=== PATIENT | male | born 1975 | race Two or more races ===

== ENCOUNTER 2021-08-20 12:47 | Outpatient (REF) | payer MEDICAID, SELFPAY ==
--- NOTE | 2021-08-20 12:52 | EEG_ITS ---
This is a 16-channel EEG with an EKG lead. The patient is reported awake during the tracing. Background EEG rhythm is 10 to 12 hertz, 5 to 30 microvolt posteriorly and lower amplitude fast anteriorly. Photic stimulation does not produce any significant driving. Hyperventilation is not performed. Cardiac lead does not reveal any significant abnormality. No sharp wave spikes or paroxysmal tendency noted. IMPRESSION: Unremarkable EEG. MD LINO Franco/JIAN / [id number]
== END 2021-08-20 12:48 | disposition home or self-care (01) ==
LOC: HO.NEURO 12:47
PROVIDERS: PCP Pediatrics; Visit Provider Pediatrics
DX: R55 Syncope and collapse (principal)
CPT/HCPCS: 95816

== ENCOUNTER → 2022-06-10 11:44 | Day surgery (SDC) | payer MEDICAID, SELFPAY ==
--- NOTE | 2022-06-09 10:48 | HO.ANESPROP2 ---
HPI - Anesthesia Eval Consult details Narrative: 47yo M for Upper Endoscopy [facility] Past Medical History Medical History (Updated 06/09/22 @ 08:49 by Sara Taylor) Asthma Depression Hiatal hernia Iron deficiency anemia Low vitamin D level Opiate dependence Surgical History Surgical History (Updated 06/09/22 @ 08:49 by Sara Taylor) History of colonoscopy History of endoscopy Meds Allergies Allergy/AdvReac Type Severity Reaction Status Date / Time No Known Allergies Allergy Verified 06/09/22 08:47 Home Medications Medication Instructions Recorded Confirmed Last Taken Type albuterol sulfate 90 mcg/actuation 2 puff inhalation Q4H 06/09/22 06/09/22 Unknown History aerosol inhaler (ProAir HFA) buprenorphine 8 mg-naloxone 2 mg 2 strip sublingual DAILY 06/09/22 06/09/22 Unknown History sublingual film (Suboxone) hydroxyzine HCl 10 mg tablet 1 tab PO BID PRN ANXIETY 06/09/22 06/09/22 Unknown History melatonin 5 mg tablet 2 tab PO BEDTIME PRN Sleep 06/09/22 06/09/22 Unknown History olanzapine 7.5 mg tablet 1 tab PO BEDTIME 06/09/22 06/09/22 Unknown History omeprazole 40 mg capsule,delayed 1 cap PO BID 06/09/22 06/09/22 Unknown History release ondansetron HCl 4 mg tablet 1 tab PO Q8H 06/09/22 06/09/22 Unknown History prazosin 2 mg capsule 1 cap BEDTIME 06/09/22 06/09/22 Unknown History sertraline 100 mg tablet 1 tab DAILY 06/09/22 06/09/22 Unknown History sertraline 50 mg tablet 1 tab PO DAILY 06/09/22 06/09/22 Unknown History Exam Exam Date and Time: June 09, 2022 1048 Assessment and Plan Assessment Anesthesia Assessment: Chart Reviewed
[2022-06-10 12:08] VITALS: BMI 19.5
[2022-06-10 12:17] VITALS: BP 118/84; PULSE 88; RESP 16; TEMP 37.1; O2SAT 97
[2022-06-10 12:27] LABS: Amphetamine Screen Urine Not Detected (Not Detect); Barbiturates, Urine Not Detected (Not Detect); Benzodiazepines Screen Urine Not Detected (Not Detect); Cannabinoid Screen Urine Not Detected (Not Detect); Cocaine Screen Urine Not Detected (Not Detect); Fentanyl, urine POSITIVE (Not Detect); Opiate Screen Urine Not Detected (Not Detect); Phencyclidine Screen Urine Not Detected (Not Detect)
--- NOTE | 2022-06-10 12:57 | PC.NURSE ---
Urine toxicity results positive for Fentanyl. Dr. Darnell and Dr. Anderson made aware and both at bedside. Case cancelled.
== END ==
PROVIDERS: Nurse Practitioner; PCP Pediatrics; Visit Provider Internal Medicine Gastroenterology
DX: R10.13 Epigastric pain (principal); Z53.09 Procedure and treatment not carried out because of other contraindication; R79.9 Abnormal finding of blood chemistry, unspecified; R82.5 Elevated urine levels of drugs, medicaments and biological substances
CPT/HCPCS: 80307

== ENCOUNTER 2022-07-16 10:29 | Outpatient (REF) | payer MEDICAID, SELFPAY | END 2022-07-16 10:30 | disposition home or self-care (01) | LOC: HO.LAB 10:29 | PROVIDERS: PCP Pediatrics; Visit Provider Internal Medicine Gastroenterology | DX: Z13.89 Encounter for screening for other disorder (principal) | CPT/HCPCS: 80307 ==

== ENCOUNTER 2022-07-17 09:48 | Day surgery (SDC) | payer MEDICAID, SELFPAY ==
--- NOTE | 2022-07-16 09:10 | P.CONAN_ITS ---
Documented by User: Lilian Matamoros NP 07/16/22 09:12 HPI - Anesthesia Eval Consult details Narrative: 47yo M for Upper Endoscopy Suboxone daily for hx opiate Cx'd 05/2022 for +Fentanyl PMFSH Past Medical History Medical History (Updated 06/09/22 @ 08:49 by Sara Taylor) Asthma Depression Hiatal hernia Iron deficiency anemia Low vitamin D level Opiate dependence Surgical History Surgical History (Updated 06/09/22 @ 08:49 by Sara Taylor) History of colonoscopy History of endoscopy Social History Social History Patient Tobacco Use Status: Current everyday Tobacco user Tobacco use type: Cigarette Cigarettes Per Day: 6 Years Smoked: 6 Smoked in Last 30 Days: Yes Use of substances other than those prescribed or required for medical reasons: No Are you DNR?: No Advance Directives: No Advance Directives Information Provided: Yes Meds Allergies Allergy/AdvReac Type Severity Reaction Status Date / Time No Known Allergies Allergy Verified 06/10/22 12:06 Home Medications Medication Instructions Recorded Confirmed Last Taken Type albuterol sulfate 90 mcg/actuation 2 puff inhalation Q4H 06/09/22 06/10/22 06/09/22 History aerosol inhaler (ProAir HFA) buprenorphine 8 mg-naloxone 2 mg 2 strip sublingual DAILY 06/09/22 06/10/22 07/14/22 History sublingual film (Suboxone) hydroxyzine HCl 10 mg tablet 1 tab PO BID PRN ANXIETY 06/09/22 06/10/22 06/09/22 History melatonin 5 mg tablet 2 tab PO BEDTIME PRN Sleep 06/09/22 06/10/22 Unknown History olanzapine 7.5 mg tablet 1 tab PO BEDTIME 06/09/22 06/10/22 Unknown History omeprazole 40 mg capsule,delayed 1 cap PO BID 06/09/22 06/10/22 Unknown History release ondansetron HCl 4 mg tablet 1 tab PO Q8H 06/09/22 06/10/22 Unknown History prazosin 2 mg capsule 1 cap BEDTIME 06/09/22 06/10/22 Unknown History sertraline 100 mg tablet 1 tab DAILY 06/09/22 06/10/22 Unknown History sertraline 50 mg tablet 1 tab PO DAILY 06/09/22 06/10/22 Unknown History Exam Exam Date and Time: July 16, 2022 0910 Assessment and Plan Assessment Anesthesia Assessment: Chart Reviewed Documented by User: Elise Calderón MD 07/17/22 12:48 [facility] Past Medical History Medical History (Updated 06/09/22 @ 08:49 by Sara Taylor) Asthma Depression Hiatal hernia Iron deficiency anemia Low vitamin D level Opiate dependence Family History Family history of problems with anesthesia: No Surgical History Surgical History (Updated 06/09/22 @ 08:49 by Sara Taylor) History of colonoscopy History of endoscopy History of Problems with Anesthesia: No Social History Social History Patient Tobacco Use Status: Current everyday Tobacco user Tobacco use type: Cigarette Cigarettes Per Day: 6 Years Smoked: 6 Smoked in Last 30 Days: Yes Use of substances other than those prescribed or required for medical reasons: No Are you DNR?: No Advance Directives: No Advance Directives Information Provided: Yes Meds Allergies Allergy/AdvReac Type Severity Reaction Status Date / Time No Known Allergies Allergy Verified 06/10/22 12:06 Home Medications Medication Instructions Recorded Confirmed Last Taken Type albuterol sulfate 90 mcg/actuation 2 puff inhalation Q4H 06/09/22 06/10/22 06/09/22 History aerosol inhaler (ProAir HFA) buprenorphine 8 mg-naloxone 2 mg 2 strip sublingual DAILY 06/09/22 06/10/22 07/14/22 History sublingual film (Suboxone) hydroxyzine HCl 10 mg tablet 1 tab PO BID PRN ANXIETY 06/09/22 06/10/22 06/09/22 History melatonin 5 mg tablet 2 tab PO BEDTIME PRN Sleep 06/09/22 06/10/22 Unknown History olanzapine 7.5 mg tablet 1 tab PO BEDTIME 06/09/22 06/10/22 Unknown History omeprazole 40 mg capsule,delayed 1 cap PO BID 06/09/22 06/10/22 Unknown History release ondansetron HCl 4 mg tablet 1 tab PO Q8H 06/09/22 06/10/22 Unknown History prazosin 2 mg capsule 1 cap BEDTIME 06/09/22 06/10/22 Unknown History sertraline 100 mg tablet 1 tab DAILY 06/09/22 06/10/22 Unknown History sertraline 50 mg tablet 1 tab PO DAILY 06/09/22 06/10/22 Unknown History Exam Airway Mallampati Class: I TM Dist: >3cm Neck ROM: Full Heart: rr Lungs: cta Assessment and Plan Assessment Anesthesia Assessment: Anesthesia Plan Discussed Final Anesthetic Review Family History of Problems with Anesthesia: No History of Problems with Anesthesia: No NPO: Yes ASA Class: II Final Preanesthetic Review: No Changes in Pt Med Stat, Meds/Allgs Chart Reviewed, Consent Obtained/Reviewed and Anes Risks/Benef Reviewed Patient Risk: Low Procedure Risk: Low Anesthetic Plan Anesthetic Plan: MAC: Disposition: Standard PACU
[2022-07-17 10:49] VITALS: BP 130/94; PULSE 87; RESP 16; TEMP 37; O2SAT 97; BMI 21.4
[2022-07-17 11:02] LABS: Amphetamine Screen Urine Not Detected (Not Detect); Barbiturates, Urine Not Detected (Not Detect); Benzodiazepines Screen Urine Not Detected (Not Detect); Cannabinoid Screen Urine Not Detected (Not Detect); Cocaine Screen Urine Not Detected (Not Detect); Fentanyl, urine Not Detected (Not Detect); Opiate Screen Urine Not Detected (Not Detect); Phencyclidine Screen Urine Not Detected (Not Detect)
[2022-07-17] MEDS: Lactated Ringers 1,000 ML 100 ML IVCONT (11:10)
--- NOTE | 2022-07-17 12:28 | MHC.SHP ---
Pre-Procedural Eval Section A Date of Service: 07/17/22 Section B Chief Complaint: Epigastric pain Details of Present Illness: see H*P no changes Relevant Family History (Specify if Yes): No Relevant Social History: None Present Medications: see Short Stay Collaborative assessment Medical History: No relevant PMH History of Previous Operations: Relevant previous surgery/procedure and date(s) (PUD [facility] 10 yrs ago) Allergies: Allergies Allergy/AdvReac Type Severity Reaction Status Date / Time No Known Allergies Allergy Verified 06/10/22 12:06 Review of Systems Sugical H&P ROS: Negative: Constitution, Cardiovascular, Respiratory, Neurological, Psychiatric, Hem-Onc, Allergic/Immunologic, Gastrointestinal, Genitourinary, Musculoskeletal, Integumentary, Endocrine and Eyes/Ears/Nose/Throat Exam Surgical H&P Exam: Normal: HEENT, Normal: Heart, Normal: Lungs, Normal: Extremities, Normal: Abdomen, Normal: Skin and Normal: Neurological Plan Diagnosis/Plan: Unchanged I have reviewed the history and physical and performed a pertinent physical examination on my patient. No changes have occurred unless specified. Time Spent With Patient Time: Total time managing care of this patient today ____ minutes.
[2022-07-17 13:00] VITALS: BP 92/54; PULSE 73; RESP 16; TEMP 36.1; O2SAT 96
[2022-07-17 13:15] VITALS: BP 92/54; PULSE 73; RESP 16; O2SAT 98
[2022-07-17 13:30] VITALS: BP 116/74; PULSE 67; RESP 16; TEMP 36.1; O2SAT 98
--- NOTE | 2022-07-17 14:58 | PM.OP ---
Brief Operative Note Date of Service: 07/17/22 Pre-op diagnosis: abdominal pain Post-op diagnosis: same (gastric ulcer) Procedure: EGD Surgeon: Hoang Darnell Anesthesia: MAC Was an Fiberglass Autobody Repairer used for this Procedure?: No Estimated blood loss (mL): 5 Pathology: other Condition: stable Disposition: PACU
--- NOTE | 2022-07-17 23:23 | OP_ITS ---
DATE OF SERVICE: 07/17/2022 SURGEON: Hoang Darnell MD INDICATIONS: Epigastric pain. PREOPERATIVE DIAGNOSIS: POSTOPERATIVE DIAGNOSIS: PROCEDURE PERFORMED: Upper endoscopy with biopsy. ESTIMATED BLOOD LOSS: COMPLICATIONS: ANESTHESIA: Monitored anesthesia care. ASSISTANTS: SPECIMENS: DESCRIPTION OF PROCEDURE: History and physical was performed. The risks and benefits of the procedure were explained to the patient. Informed consent was obtained. The patient was placed in the left lateral decubitus position. The Olympus video gastroscope was introduced into the esophagus, stomach, and duodenum. Examination was performed. The scope was removed. He tolerated the procedure well and was returned to the recovery area in stable condition. FINDINGS: Esophagus: The esophagus was normal. There was an irregular EG junction. Stomach: The stomach showed a large ulcer in the antrum, superior to the pylorus, measuring approximately 2.5 x 1.5 cm. The ulcer was fairly deep and had no stigmata of recent hemorrhage. Biopsies were obtained from the margin of the ulcer. Biopsies were also obtained from the antrum. Duodenum: The bulb and 2nd portion were normal. Biopsies were obtained from the EG junction. IMPRESSION: Gastric antral ulcer. RECOMMENDATION: 1. Follow up the biopsy results. 2. High-dose proton pump inhibitor. 3. Discontinue smoking and NSAID use. MD RENETTA Pierson/LINNL / [id number]
== END 2022-07-17 14:05 | disposition home or self-care (01) ==
PROVIDERS: PCP Pediatrics; Visit Provider Internal Medicine Gastroenterology
PROC: 0DJ08ZZ Inspection of Upper Intestinal Tract, Via Natural or Artificial Opening Endoscopic (ICD-10-PCS; CPT 43235; principal; 2022-07-17 11:30)
DX: R10.13 Epigastric pain (principal); K25.9 Gastric ulcer, unspecified as acute or chronic, without hemorrhage or perforation; K29.50 Unspecified chronic gastritis without bleeding; K22.70 Barrett's esophagus without dysplasia; F17.210 Nicotine dependence, cigarettes, uncomplicated; J45.909 Unspecified asthma, uncomplicated; D50.9 Iron deficiency anemia, unspecified; E55.9 Vitamin D deficiency, unspecified; F32.A Depression, unspecified; F11.20 Opioid dependence, uncomplicated; Z79.899 Other long term (current) drug therapy
CPT/HCPCS: 43239; 80307; 88305; 88342; J2250

== ENCOUNTER 2022-10-12 09:58 | Outpatient (REF) | payer MEDICAID, SELFPAY ==
[2022-10-12 14:50] LABS: MANUAL DIFF FLAG NO
[2022-10-12 14:59] LABS: Basophils Absolute Auto 0.1 X10*3/uL (0.0-0.2); Basophils Percent Auto 2.5 % (0-2); Eosinophils Absolute Auto 0.5 X10*3/uL (0.0-0.4); Eosinophils Percent Auto 10.9 % (0-4); Hematocrit 40.7 % (42.0-52.0); Hemoglobin 13.4 g/dl (14.0-18.0); Imm Gran Abs Auto 0.01 X10*3/uL (0.00-0.03); Imm Gran Pct Auto 0.2 % (0.0-0.4); Lymphocytes Percent Auto 40.9 % (20-40); Mean Corpuscular HGB Conc 32.9 g/dl (31.0-36.0); Mean Corpuscular Hemoglobin 30.3 pg (27.0-33.0); Mean Corpuscular Volume 92.1 fL (80.0-98.0); Mean Platelet Volume 13.2 fL (9.4-12.4); Monocytes Absolute Auto 0.3 X10*3/uL (0.1-1.2); Monocytes Percent Auto 6.1 % (2-11); Neutrophils Absolute Auto 1.9 x10*3/uL (2.0-8.3); Neutrophils Percent Auto 39.4 % (45-73); Platelet Count 162 X10*3/uL (160-400); Red Blood Count 4.42 X10*6/uL (4.60-5.80); Red Cell Distribution Width 12.7 % (11.0-16.0); White Blood Count 4.8 X10*3/uL (4.8-10.8)
[2022-10-12 15:42] LABS: Alanine Aminotransferase 16 U/L (0-40); Albumin Level 3.8 g/dL (3.5-5.0); Alkaline Phosphatase 51 U/L (39-117); Anion Gap 13 (12-20); Aspartate Amino Transferase 19 U/L (5-37); Bilirubin Direct 0.2 mg/dL (0.0-0.5); Bilirubin Total 0.5 mg/dL (0.0-1.0); Blood Urea Nitrogen 8 mg/dL (9-16); Calcium 9.3 mg/dL (8.4-10.2); Carbon Dioxide 28 mmol/L (22-29); Chloride 106 mmol/L (96-108); Estimated Glomerular Filt Rate > 60; Glucose Fasting 60 mg/dL (60-99); Potassium 3.6 mmol/L (3.3-5.1); Sodium 143 mmol/L (135-145); Total Protein 6.3 g/dL (6.5-8.0)
[2022-10-12 15:51] LABS: Syphilis Screen Nonreactive (Nonreactive)
[2022-10-12 15:56] LABS: Thyroid Stimulating Hormone 1.19 uIU/mL (0.32-4.0)
[2022-10-12 16:03] LABS: Folate 3.5 ng/mL (> or = 4.0); Vitamin B12 342 pg/mL (200-900)
[2022-10-12 20:13] LABS: Vitamin D 25-OH Total 13.8 ng/mL (>30)
[2022-10-13 05:37] LABS: ~HepC Num1 0.08 S/CO (0.00-0.79); ~Hepatitis C Antibody Nonreactive (Nonreactive)
[2022-10-13 05:38] LABS: HIV AB/AG Nonreactive (Nonreactive); HIV Num 1 0.06 S/CO (0.00-0.99)
[2022-10-15 02:03] LABS: TS Negative Control Passed; TS Panel A 0; TS Panel B 0; TS Positive Control Passed; TSpotTB Negative (Negative)
== END 2022-10-12 09:59 | disposition home or self-care (01) ==
LOC: HO.CHCLDS 09:58
PROVIDERS: Absent Provider Family Medicine; Visit Provider Psychiatry & Neurology Psychiatry
DX: Z11.4 Encounter for screening for human immunodeficiency virus [HIV] (principal); Z11.1 Encounter for screening for respiratory tuberculosis; F11.20 Opioid dependence, uncomplicated; Z79.899 Other long term (current) drug therapy
CPT/HCPCS: 36415; 80053; 80076; 82248; 82306; 82607; 82746; 84443; 85025; 86481; 86780; 86803; 87389

== ENCOUNTER 2022-10-23 10:29 | Day surgery (SDC) | payer MEDICAID, SELFPAY ==
--- NOTE | 2022-10-21 13:29 | HO.ANESPROP2 ---
HPI - Anesthesia Eval Consult details Narrative: 47yo M for Upper Endoscopy s/p same 06/2022 with MAC (previously cx'd d/t + urine tox) suboxone daily PMFSH Past Medical History Medical History (Updated 06/09/22 @ 08:49 by Sara Taylor) Asthma Depression Hiatal hernia Iron deficiency anemia Low vitamin D level Opiate dependence Family History Family history of problems with anesthesia: No Surgical History Surgical History (Updated 06/09/22 @ 08:49 by Sara Taylor) History of colonoscopy History of endoscopy History of Problems with Anesthesia: No Social History Social History Patient Tobacco Use Status: Current everyday Tobacco user Tobacco use type: Cigarette Cigarettes Per Day: 5 Years Smoked: 6 Smoked in Last 30 Days: Yes Use of substances other than those prescribed or required for medical reasons: Yes Are you DNR?: No Advance Directives: No Advance Directives Information Provided: Yes Meds Allergies Allergy/AdvReac Type Severity Reaction Status Date / Time No Known Allergies Allergy Verified 10/23/22 10:54 Home Medications Medication Instructions Recorded Confirmed Last Taken Type albuterol sulfate 90 mcg/actuation 2 puff inhalation Q4H 06/09/22 10/23/22 06/09/22 History aerosol inhaler (ProAir HFA) buprenorphine 8 mg-naloxone 2 mg 2 strip sublingual DAILY 06/09/22 10/23/22 10/22/22 History sublingual film (Suboxone) 8 mg hydroxyzine HCl 10 mg tablet 1 tab PO BID PRN ANXIETY 06/09/22 10/23/22 06/09/22 History melatonin 5 mg tablet 2 tab PO BEDTIME PRN Sleep 06/09/22 10/23/22 Unknown History olanzapine 7.5 mg tablet 1 tab PO BEDTIME 06/09/22 10/23/22 Unknown History omeprazole 40 mg capsule,delayed 1 cap PO BID 06/09/22 10/23/22 Unknown History release ondansetron HCl 4 mg tablet 1 tab PO Q8H 06/09/22 10/23/22 Unknown History prazosin 2 mg capsule 1 cap BEDTIME 06/09/22 10/23/22 Unknown History sertraline 100 mg tablet 1 tab DAILY 06/09/22 10/23/22 Unknown History sertraline 50 mg tablet 1 tab PO DAILY 06/09/22 10/23/22 Unknown History Exam Exam Date and Time: October 21, 2022 1329 Pertinent Lab Results Pertinent Lab Results: Laboratory Tests 10/12/22 10/12/22 10:23 10:23 WBC 4.8 Hgb 13.4 L Hct 40.7 L Plt Count 162 Sodium 143 Potassium 3.6 Chloride 106 Carbon Dioxide 28 BUN 8 L Creatinine 0.99 Assessment and Plan Assessment Anesthesia Assessment: Chart Reviewed Final Anesthetic Review Family History of Problems with Anesthesia: No History of Problems with Anesthesia: No
[2022-10-23 10:55] VITALS: BMI 20.4
[2022-10-23 10:57] VITALS: BP 124/80; PULSE 71; RESP 16; TEMP 37.2; O2SAT 100
[2022-10-23] MEDS: Lactated Ringers 1,000 ML 100 ML IVCONT (11:13)
--- NOTE | 2022-10-23 11:18 | P.CONAN_ITS ---
[facility] Past Medical History Medical History (Updated 06/09/22 @ 08:49 by Sara Taylor) Asthma Depression Hiatal hernia Iron deficiency anemia Low vitamin D level Opiate dependence Functional capacity: independent ambulation Family History Family history of problems with anesthesia: No Surgical History Surgical History (Updated 06/09/22 @ 08:49 by Sara Taylor) History of colonoscopy History of endoscopy History of Problems with Anesthesia: No Social History Social History Patient Tobacco Use Status: Current everyday Tobacco user Tobacco use type: Cigarette Cigarettes Per Day: 5 Years Smoked: 6 Smoked in Last 30 Days: Yes Use of substances other than those prescribed or required for medical reasons: Yes Are you DNR?: No Advance Directives: No Advance Directives Information Provided: Yes Meds Allergies Allergy/AdvReac Type Severity Reaction Status Date / Time No Known Allergies Allergy Verified 10/23/22 10:54 Active Medications: Current Medications Albuterol Sulfate (Albuterol Sulfate (0.083%) 2.5 Mg/3 Ml Vial.Neb) 2.5 mg INHALE ONCE PRN PRN Reason: Shortness of Breath/Wheezing Lactated Ringer's (Lr) 1,000 mls @ 100 mls/hr IVCONT .Q10H LUIS FERNANDO Last Admin: 10/23/22 11:13 Dose: 100 mls/hr Home Medications Medication Instructions Recorded Confirmed Last Taken Type albuterol sulfate 90 mcg/actuation 2 puff inhalation Q4H 06/09/22 10/23/22 06/09/22 History aerosol inhaler (ProAir HFA) buprenorphine 8 mg-naloxone 2 mg 2 strip sublingual DAILY 06/09/22 10/23/22 10/22/22 History sublingual film (Suboxone) 8 mg hydroxyzine HCl 10 mg tablet 1 tab PO BID PRN ANXIETY 06/09/22 10/23/22 06/09/22 History melatonin 5 mg tablet 2 tab PO BEDTIME PRN Sleep 06/09/22 10/23/22 Unknown History olanzapine 7.5 mg tablet 1 tab PO BEDTIME 06/09/22 10/23/22 Unknown History omeprazole 40 mg capsule,delayed 1 cap PO BID 06/09/22 10/23/22 Unknown History release ondansetron HCl 4 mg tablet 1 tab PO Q8H 06/09/22 10/23/22 Unknown History prazosin 2 mg capsule 1 cap BEDTIME 06/09/22 10/23/22 Unknown History sertraline 100 mg tablet 1 tab DAILY 06/09/22 10/23/22 Unknown History sertraline 50 mg tablet 1 tab PO DAILY 06/09/22 10/23/22 Unknown History Exam Exam Date and Time: October 23, 2022 1118 Height,Weight and Vital Signs: Height 5 ft 7 in Weight 58.967 kg Last Vital Signs Temp 98.9 F 10/23/22 10:57 Pulse 71 10/23/22 10:57 Resp 16 10/23/22 10:57 BP 124/80 10/23/22 10:57 Pulse Ox 100 10/23/22 10:57 O2 Del Method Room Air 10/23/22 10:57 Airway Mallampati Class: II TM Dist: >3cm Neck ROM: Full Heart: RRR Lungs: CTA Assessment and Plan Assessment Anesthesia Assessment: Anesthesia Plan Discussed and Smoking Cess. Discussed Final Anesthetic Review Family History of Problems with Anesthesia: No History of Problems with Anesthesia: No NPO: Yes Final Preanesthetic Review: Meds/Allgs Chart Reviewed, Consent Obtained/Reviewed and Anes Risks/Benef Reviewed Patient Risk: Low Procedure Risk: Low Anesthetic Plan Anesthetic Plan: MAC: Disposition: Standard PACU
--- NOTE | 2022-10-23 12:37 | MHC.SHP ---
Pre-Procedural Eval Section A Date of Service: 10/23/22 Section B Chief Complaint: Acute gastric ulcer, epigastric pain Details of Present Illness: see h&p and update Relevant Family History (Specify if Yes): No Relevant Social History: None Present Medications: see Short Stay Collaborative assessment Medical History: Significant History History of Previous Operations: No relevant previous surgery Allergies: Allergies Allergy/AdvReac Type Severity Reaction Status Date / Time No Known Allergies Allergy Verified 10/23/22 10:54 Review of Systems Sugical H&P ROS: Negative: Constitution, Cardiovascular, Respiratory, Neurological, Psychiatric, Hem-Onc, Allergic/Immunologic, Gastrointestinal, Genitourinary, Musculoskeletal, Integumentary, Endocrine and Eyes/Ears/Nose/Throat Exam Surgical H&P Exam: Normal: HEENT, Normal: Heart, Normal: Lungs, Normal: Extremities, Normal: Abdomen, Normal: Skin and Normal: Neurological Plan Diagnosis/Plan: Unchanged I have reviewed the history and physical and performed a pertinent physical examination on my patient. No changes have occurred unless specified. Time Spent With Patient Time: Total time managing care of this patient today ____ minutes.
[2022-10-23 13:01] VITALS: BP 84/50; PULSE 72; RESP 16; TEMP 36.2; O2SAT 99
--- NOTE | 2022-10-23 13:01 | PM.OP ---
Brief Operative Note Date of Service: 10/23/22 Pre-op diagnosis: gastric ulcer Post-op diagnosis: same Surgeon: Hoang Darnell Anesthesia: MAC Was an Vacuum Forming Machine Operator used for this Procedure?: No Estimated blood loss (mL): 2 Pathology: other Condition: stable Disposition: PACU
--- NOTE | 2022-10-23 13:13 | HO.POSTANES ---
Post Anesthesia Evaluation Post Anesthesia Evaluation Date of Service: 10/23/22 Vital Signs: Vital Signs Temp Pulse Resp BP Pulse Ox O2 Del Method 10/23/22 10:57 98.9 F 71 16 124/80 100 Room Air Anesthesia: Monitored Mental Status: Awake Pain Control: Satisfactory Nausea/Vomiting: None Hydration: Adequate Anesthesia-Related Issues: No Anes. Related Issues
[2022-10-23 13:16] VITALS: BP 88/55; PULSE 69; RESP 16; O2SAT 97
[2022-10-23 13:31] VITALS: BP 108/76; PULSE 78; RESP 18; TEMP 36.8; O2SAT 99
--- NOTE | 2022-10-23 23:26 | OP_ITS ---
DATE OF SERVICE: 10/23/2022 SURGEON: Hoang Darnell MD INDICATIONS: Large gastric ulcer on prior endoscopy. PREOPERATIVE DIAGNOSIS: POSTOPERATIVE DIAGNOSIS: PROCEDURE PERFORMED: Upper endoscopy with biopsy. ESTIMATED BLOOD LOSS: COMPLICATIONS: ANESTHESIA: Monitored anesthesia care. ASSISTANTS: SPECIMENS: DESCRIPTION OF PROCEDURE: History and physical performed. The risks and benefits of procedure were explained to the patient. Informed consent was obtained. The patient was placed in the left lateral decubitus position. The Olympus video gastroscope was introduced into the esophagus, stomach, and duodenum. Examination was performed. The scope was removed. He tolerated the procedure well and was taken to recovery area in stable condition. FINDINGS: Esophagus: The esophagus was normal. The EG junction appeared within normal limits. Stomach: The stomach showed no evidence of masses, ulcers, or polyps. The previously identified gastric ulcer was completely healed with minimal erythema in the pyloric area. Biopsies were obtained from the antrum. Duodenum: The bulb and 2nd portion were normal. IMPRESSION: Gastric ulcer, healed. RECOMMENDATIONS: 1. Continue proton pump inhibitor. 2. Follow up in the office in 6 months. MD RENETTA Pierson/JIAN / [id number]
== END 2022-10-23 15:24 | disposition home or self-care (01) ==
PROVIDERS: PCP Family Medicine; Visit Provider Internal Medicine Gastroenterology
PROC: 0DJ08ZZ Inspection of Upper Intestinal Tract, Via Natural or Artificial Opening Endoscopic (ICD-10-PCS; CPT 43235; principal; 2022-10-23 11:20)
DX: R10.13 Epigastric pain (principal); Z87.11 Personal history of peptic ulcer disease; D50.9 Iron deficiency anemia, unspecified; E55.9 Vitamin D deficiency, unspecified; J45.909 Unspecified asthma, uncomplicated; F32.A Depression, unspecified; F11.20 Opioid dependence, uncomplicated; Z79.899 Other long term (current) drug therapy; F17.210 Nicotine dependence, cigarettes, uncomplicated
CPT/HCPCS: 43239; 88305; 88342; J2250

== ENCOUNTER 2024-01-03 10:26 | Outpatient (REF) | payer MEDICAID, SELFPAY ==
[2024-01-03 14:12] LABS: MANUAL DIFF FLAG NO
[2024-01-03 14:16] LABS: Basophils Absolute Auto 0.1 X10*3/uL (0.0-0.2); Basophils Percent Auto 1.8 % (0-2); Eosinophils Absolute Auto 0.3 X10*3/uL (0.0-0.4); Eosinophils Percent Auto 5.1 % (0-4); Hemoglobin 13.6 g/dl (14.0-18.0); Imm Gran Abs Auto 0.01 X10*3/uL (0.00-0.03); Imm Gran Pct Auto 0.2 % (0.0-0.4); Lymphocytes Absolute Auto 1.5 X10*3/uL (1.2-4.9); Lymphocytes Percent Auto 29.6 % (20-40); Mean Corpuscular HGB Conc 33.2 g/dl (31.0-36.0); Mean Corpuscular Volume 90.5 fL (80.0-98.0); Monocytes Absolute Auto 0.4 X10*3/uL (0.1-1.2); Monocytes Percent Auto 8.7 % (2-11); Neutrophils Absolute Auto 2.8 x10*3/uL (2.0-8.3); Neutrophils Percent Auto 54.6 % (45-73); Platelet Count 188 X10*3/uL (160-400); Red Blood Count 4.53 X10*6/uL (4.60-5.80); Red Cell Distribution Width 12.8 % (11.0-16.0); White Blood Count 5.1 X10*3/uL (4.8-10.8)
[2024-01-03 14:22] LABS: Amphetamine Screen Urine Not Detected (Not Detect); Barbiturates, Urine Not Detected (Not Detect); Benzodiazepines Screen Urine Not Detected (Not Detect); Buprenorphine Scr Positive (Not Detect); Cannabinoid Screen Urine Not Detected (Not Detect); Cocaine Screen Urine Not Detected (Not Detect); Fentanyl, urine Not Detected (Not Detect); Methadone Screen, Urine Not Detected (Not Detect); Opiate Screen Urine Not Detected (Not Detect); Oxycodone Screen Urine Not Detected (Not Detect); Phencyclidine Screen Urine Not Detected (Not Detect)
[2024-01-03 14:39] LABS: Alanine Aminotransferase 14 U/L (0-40); Albumin Level 3.8 g/dL (3.5-5.0); Alkaline Phosphatase 43 U/L (39-117); Anion Gap 10 (12-20); Aspartate Amino Transferase 16 U/L (5-37); Bilirubin Direct 0.1 mg/dL (0.0-0.5); Bilirubin Total 0.4 mg/dL (0.0-1.0); Blood Urea Nitrogen 10 mg/dL (9-16); Calcium 8.9 mg/dL (8.4-10.2); Carbon Dioxide 29 mmol/L (22-29); Chloride 105 mmol/L (96-108); Cholesterol 174 mg/dL (<200); Estimated Glomerular Filt Rate > 60; Glucose Fasting 103 mg/dL (60-99); HDL Cholesterol 48 mg/dL (>40); LDL Cholesterol Calculated 100 mg/dL (<100); Potassium 3.9 mmol/L (3.3-5.1); Sodium 140 mmol/L (135-145); Total Protein 6.3 g/dL (6.5-8.0); Triglycerides 134 mg/dL (<150)
[2024-01-03 14:59] LABS: TSH reflex Free T4 1.24 uIU/mL (0.32-4.0); Vitamin D 25-OH Total 16.5 ng/mL (>30)
[2024-01-03 15:01] LABS: Folate 4.3 ng/mL (> or = 4.0); Vitamin B12 271 pg/mL (200-900)
== END 2024-01-03 10:27 | disposition home or self-care (01) ==
LOC: HO.CHCLDS 10:26
PROVIDERS: Visit Provider Pediatrics
DX: Z00.00 Encounter for general adult medical examination without abnormal findings (principal)
CPT/HCPCS: 80048; 80061; 80076; 80307; 82306; 82607; 82746; 84443; 85025

== ENCOUNTER 2024-05-19 09:01 | Day surgery (SDC) | payer MEDICAID, SELFPAY ==
--- OUTSIDE RECORDS SUMMARY | 2024-05-12 12:02 | XMS_ITS | Encounter Summary ---
Author Organization [employer] [facility] Address [address] [place] [address] Care Team Providers Care Manager Family Name Role Phone No Fay MD Primary Care Provider [phone] Encounter Details Date Type Department Care Team (Latest Contact Info) Description 01/27/2019 Abstract [facility] CONVERSIONS Dental, Provider, DDS Social History Tobacco Use Types Packs/Day Years Used Date Smoking Tobacco: Never Assessed Sex and Gender Information Value Date Recorded Sex Assigned at Male 01/26/2022 10:16 AM EDT Legal Sex Male 10:16 AM EDT Gender Identity Male 01/26/2022 10:16 AM EDT Sexual Orientation Straight 01/26/2022 10 :16 AM EDT documented as of this encounter Plan of Treatment Upcoming Encounters Date Type Department Care Team (Late st Contact Info) Description 05/22/2024 11:00 AM EST Office Visit [facility] [address] [place] [address] Sajan Roca MD [address] [place] [phone] 07/10/2024 9:00 AM EDT Office Visit [facility] [address] [place] [address] Sajan Roca MD [address] [place] [address] documented as of this encounter Visit Diagnoses Not on filedocumented in this encounter Care Teams Manager Family Relationship Specialty Start Date End Date No Fay MD [address] [place] [address] PCP - General Family Medicine 12/15/17 documented as of this encounter
--- OUTSIDE RECORDS SUMMARY | 2024-05-12 12:02 | XMS_ITS ---
Author Organization [facility] Address [address] [place] [id number] Care Team Providers Care Light Rail Train Operator Name Role Phone Sumeet JOSHI, No Primary Care Provider Hoang Trevino Jr Unavailable ALLERGIES No Known Allergies REASON FOR VISIT Patient presents today for a COLON SCREENING MEDICATIONS Medication SIG (Take, Route, Frequency, Duration) Notes Start Date End Date Status Prazosin HCl 2 MG TAKE ONE CAPSULE AT BEDTIME Oral for 30 Active Ondansetron HCl 4 MG TAKE ONE TABLET LENNOX RY 8 HOURS Oral for 23 Active hydrOXYzine HCl 10 MG TAKE ONE TABLET TW ICE DAILY NEEDED Oral for 30 Active Melatonin 5 MG TAKE TWO TABLETS AT BEDTIME NEEDED Oral for 30 Active Pantoprazole Sodium 40 MG 1 tablet Orall y Twice a day for 30 days 05/04/2022 Active Sertraline HCl 50 MG TAKE ONE TABLET SANDRA LY WITH 100mg TABLET Oral for 30 Active ProAir HFA 108 (90 Base) MCG/ACT INHALE TWO PUFFS BY MOUTH EVERY 4 HOURS Inhalation for 17 Active Suboxone 8-2 MG DISSOLVE 2 FILMS UND ER THE TONGUE EVERY DAY Diagnosis Unavailable Sublingual for 28 Active OLANZapine 7.5 MG TAKE ONE TABLET EVER Y NIGHT Oral for 30 Active IMMUNIZATIONS Vaccine Route Administration Date Status Comme nts Influenza Unknown 04/26/2024 Refused SOCIAL HISTORY Tobacco Use: Social History Observation Description Date Details (start date - stop date) Current Smoker NA - NA Sex Assigned At : Social History Observation Description Sex Assigned At Unknown Tobacco Use/Smoking Question Answer Notes Patient is a current smoker Alcohol Screen Question Answer Notes Did you have a drink containing alcohol in the p ast year? No Points 0 Interpretation Negative PROBLEMS Problem Type ICD Code Onset Dates Problem Status W/U Status Risk SNOMED Code Notes Problem Colon cancer screening (Z12.11) Active confirmed [id number] VITAL SIGNS BMI 20.52 kg/m2 04/26/2024 Blood pressure systolic 001 mm Hg 04/26/19 25 Blood pressure diastolic 01 mm Hg 025 Height 67 in 04/26/2024 Temperature 98.6 degrees Fahrenheit 04/26/19 25 Weight 131 lbs 04/26/2024 Encounters Encounter Location Date Provider Diagnosis [facility] [address] [place] [address] 04/26/2024 Hoang Darnell Jr Colon cancer screening Z12.11 and Acute gastric ulcer without hemorrhage or perforation K25.3 ASSESSMENTS Encounter Date Diagnosis Assessment Notes Treatment Notes Treatment Clinical Notes 04/26/2024 Colon cancer screening (ICD-10 - Z12.11) Colonoscopy material was printed 04/26/2024 Acute gastric ulcer without hemorrhage or perforation (ICD-10 - K25.3) PLAN OF TREATMENT Treatment Notes Assessment Notes Colon cancer screening Colonoscopy mater ial was printed Future Test Test Name Order Date COLONOSCOPY 04/26/2024 Next Appt Details Follow Up: 1 Year, Reason: Provider Name:Hoang valdez Jr, 05/19/2024 12:30:00 PM, [address] [place] [address] , [place], [place], [id number],
--- OUTSIDE RECORDS SUMMARY | 2024-05-12 12:02 | XMS_ITS | Encounter Summary ---
Author Organization [facility] Address [address] [facility] 7t [place] [address] Care Team Providers Care Disc Recordist Name Role Phone No Fay MD Primary Care Provider Encounter Details Date Type Department Care Team (Late st Contact Info) Description 02/05/2023 Abstract [facility] [address] [place] [address] Lulú Garcia Social History Tobacco Use Types Packs/Day Years [...] Description 05/22/2024 11:00 AM EST Office Visit [facility] [address] [place] [address] Sajan Roca MD [address] [place] [address] 07/10/2024 9:00 AM EDT Office Visit [facility] [address] [place] [address] Sajan Roca MD [address] [place] [address] documented as of this encounter Procedures Procedure Name Priority Date/Time Associated Diagnosis Comments COLONOSCOPY Routine 01/25/2018 documented in this encounter Results * Colonoscopy (01/25/2018) Colonoscopy Normal Normal Narrative Lulú Garcia - 01/25/2018 Recommended 5 year follow up us Historical Provider HEALTH MAINTENANCE Final Result documented in this encounter Visit Diagnoses Not on filedocumented in this encounter Care Teams Disc Recordist Relationship Specialty Start Date End Date No Fay MD [address] [place] [address] PCP - General Family Medicine 12/15/17 documented as of this encounter
--- OUTSIDE RECORDS SUMMARY | 2024-05-12 12:02 | XMS_ITS | Clinical Summary ---
Author Organization [employer] Address [address] [facility] 7t [place] [address] Care Team Providers Care Pattern Grader Cutter Name Role Phone No Fay MD Primary Care Provider [phone] Allergies No known active allergies Medications ondansetron (Zofran) 4 MG tablet Take 1 tablet by mouth every 8 (eight) hours. 2 Active albuterol (Ventolin HFA) 108 (90 Base) MCG/ACT inhaler 2 puffs every 4 (four) hours. 2 Active naloxone (Narcan) 4 mg/0.1 mL nasal spray Administer 0.1 mL into affected nostril(s) if needed. 0 Active hydrOXYzine HCl (Atarax) 25 MG tablet Take 1 tablet by mouth in the morning and 1 tablet at noon and 1 tablet in the evening and 1 tablet before bedtime. 9 Active sertraline (Zoloft) 100 MG tablet Take 200 mg by mouth Once per day. 4 Active prazosin (Minipress) 2 MG capsule Take 2 mg by mouth at bedtime. 4 Active OLANZapine (ZyPREXA) 20 MG tablet Take 1 tablet by mouth at bedtime. 4 Active melatonin 5 MG tablet TAKE TWO TABLETS BY MOUTH AT BEDTIME NEEDED Active hydrOXYzine HCl (Atarax) 10 MG tablet Take 10 mg by mouth if needed in the morning and at bedtime. 4 Active cyproheptadine (Periactin) 4 MG tablet Take 1 tablet (4 mg) by mouth at bedtime. 30 tablet 3 4 Active omeprazole (PriLOSEC) [address] capsule Take 1 capsule (40 mg) by mouth before breakfast. 90 capsule 3 4 Active cyancobalamine (Vitamin B-12) 250 MCG tablet Take 1 tablet (250 mcg) by mouth Once per day. 30 tablet 11 4 01/04/20 25 Active cholecalciferol (Vitamin D-3) 125 MCG (5000 UT) capsule TAKE ONE CAPSULE EVERY DAY 30 capsule 1 4 Active Buprenorphine HCl-Naloxone HCl (Suboxone) 8-2 MG SL filmIndications:O pioid dependence, uncomplicated (CMS/HCC) Place 2 Film under the tongue Once per day. 56 Film 1 4 05/16/19 25 Active Active Problems Problem Noted Date Diagnosed Date Opioid type dependence, continuous 04/14/2018 Low vitamin D level 04/14/2018 Moderately severe major depression 02/10/2018 Iron deficiency anemia 01/11/2018 Gastritis 12/15/2017 Encounters Date Type Department Care Team Description 03/27/2024 11:00 AM EST Clinical Support [facility] [address] [place] [address] Ling Dye RN Opioid type dependence, continuous (CMS/HCC) (Primary Dx) 03/27/2024 Travel 03/27/2024 Patient Outreach [facility] [address] [place] [phone] Chad Zamora Recovery Supports 03/20/2024 Refill [facility] [address] [place] [address] Ling Dye, JUAN MANUEL Opioid dependence, uncomplicated (CMS/HCC) 03/01/2024 Telephone [facility] [address] [place] [address] No Fay MD No Show 02/28/2024 Refill [facility] [address] [place] [address] No Fay MD from Last 3 Months Immunizations Name Administration Dates Next Due Hep A / Hep B 01/15/2017 Influenza injectable quadriv alent IIV4 with preservative 12/15/2017 MMR 10/04/2016 Meningococcal MCV4P ACYW-135 05/02/2018 Pneumococcal Polysaccharide PPSV23 01/28/2012 Tdap 12/15/2017 Social History Tobacco Use Types Packs/Day Years Used Date Smoking Tobacco: Never Assessed Depression Answer Date Recorded Patient Health Questionnaire-9 Score 21 12/31/2023 Patient Health Questionnaire-9 Score 21 12/31/2023 Last PHQ-9: Questionnaire Data Not on file 1 Depression Answer Date Recorded Patient Health Questionnaire-2 Score 5 12/31/2023 Sex and Gender Information Value Date Recorded Sex Assigned at Male 01/26/2022 10:16 AM EDT Legal Sex Male 10:16 AM EDT Gender Identity Male 01/26/2022 10:16 AM EDT Sexual Orientation Straight 01/26/2022 10 :16 AM EDT Last Filed Vital Signs Vital Sign Reading Time Taken Comments Blood Pressure 140/80 12/31/2023 10:08 AM EDT Pulse 91 12/31/2023 10:08 AM EDT Temperature 36.9 ??C (98.5 ??F) 12/31/2023 10:08 AM E DT Respiratory Rate 20 12/31/2023 10:08 AM EDT Oxygen Saturation 98% 12/31/2023 10:08 AM EDT Inhaled Oxygen Concentration - - Weight 57.2 kg (126 lb) 12/31/2023 10:08 AM EDT Height 171.5 cm (5' 7.5 ) 12/31/2023 10:08 AM ED T Body Mass Index 19.44 12/31/2023 10:08 AM EDT Plan of Treatment Upcoming Encounters Date Type Department Care Team (Late st Contact Info) Description 05/22/2024 11:00 AM EST Office Visit [facility] [address] [place] [address] Sajan Roca MD [address] [place] [phone] 07/10/2024 9:00 AM EDT Office Visit [facility] [address] [place] [address] Sajan Roca MD [address] [place] [address] Health Maintenance Due Date Last Done Comments CT Colonography 1973 FIT DNA/Cologuard 1973 FIT 1973 FOBT 1973 SDOH Screening 1973 Sigmoidoscopy 1973 Alcohol/Substance Use Screening 1985 Tobacco Screening 1985 Family Planning (PISQ) 1988 Hepatitis B Vaccines (2 of 3 - Hep B Twinrix 3-dose series) 02/12/2017 01/15/2017 Colonoscopy 01/25/2023 01/25/2018 Colorectal Cancer Screening 01/25/2023 Pneumococcal Vaccine: 50+ Years (2 of 2 - PCV) 2023 01/28/2012 Zoster Vaccines (1 of 2) 2023 COVID-19 Vaccine (1 - 2023-2 5 season) 2023 Influenza Vaccine (#1) 2023 8, 01/28/2012 Depression Monitoring (PHQ-9) 06/30/2024, 12/31/2023 Depression Screening 12/30/2024 12/31/2023, 12/31/2023 DTaP/Tdap/Td Vaccines (2 - T d or Tdap) 12/16/2027 12/15/2017 Lipid Panel 01/02/2029 01/03/2024 RSV Patients and Patients Aged 60 years or older (1 - 1-dose 75+ series) 2048 Hepatitis A Vaccines Aged Out 01/15/2017 No long er eligible based on patient's age to complete this topic Meningococcal Vaccine Aged Out 05/02/2018 No jori ray eligible based on patient's age to complete this topic HIV Screening Completed 10/12/2022, 04/28/2021 Hepatitis C Screening Completed 10/12/2022 , 04/28/2021 HIB Vaccines Aged Out No longer eligi ble based on patient's age to complete this topic HPV Vaccines Aged Out No longer eligi ble based on patient's age to complete this topic IPV Vaccines Aged Out No longer eligi ble based on patient's age to complete this topic RSV under 20 months Aged Out No longe r eligible based on patient's age to complete this topic Rotavirus Vaccines Aged Out No longer eligible based on patient's age to complete this topic Procedures Procedure Name Priority Date/Time Associated Diagnosis Comments POCT DONNY-14 URINE DRUG SCREEN Routine 03/27/2024 9:14 AM EST Opioid type dependence, continuous (CMS/HCC) LIPID PANEL, STANDARD Routine 01/03/2024 10:31 AM EDT Moderately severe major depression (CMS/HCC) Opioid type dependence, continuous (CMS/HCC) Other iron deficiency anemia Routine general medical examination at a health care facility HEPATITIS C ANTIBODY REFLEX Routine 10/12/2022 10:23 AM EDT HIV ANTIBODY/ANTIGEN ([place] DPH) Routine 10/12/2022 10:23 AM EDT HM COLONOSCOPY Routine 01/25/2018 from Last 3 Months or Most Recently Relevant to Health Maintenance Results * POCT DONNY-14 Urine Drug Screen (03/27/2024 9:14 AM EST) THC Negative Cocaine Screen, Urine Negative Opiate Screen, Urine Negative Methamphetamine Screen Urine Negative Amphetamine Screen, Urine Negative Benzodiazepines Screen, Urine Negative Barbiturate Screen, Urine Negative Methadone Screen, Urine Negative Buprenophine Screen, Urine Positive TCA, Urine Negative MDMA Urine Negative ng/mL Oxycodone Screen, Urine Negative Phencyclidine (PCP), Urine Negative Propoxyphene, Urine Negative Urine Urine specimen obtained by clean catch procedure / Unknown 03/27/2024 9:14 AM EST Heidi Clements MD POINT OF CARE TEST ENTER/EDIT ORDERABLES Final Result * (ABNORMAL) Lipid Panel, Standard (01/03/2024 10:31 AM EDT) Triglycerides 134 <150 mg/dL [facility] Comment:Desirable Triglyceri de: less than 150 mg/dLBorderline High Triglyceride 150-199 mg/dLHigh Triglyceride: 200-499 mg/dLVery High Triglyceride: greater than or equal to 5OO mg/dL Cholesterol 174 <200 mg/dL [facility] Comment:Desirable Cholestero l: less than 200 mg/dLBorderline High Cholesterol: 200-239 mg/dLHigh Cholesterol: greater than 239 mg/dL LDL Cholesterol Calculated 100(H) <100 mg/dL [facility] Comment:Desirable LDL: less than 100 mg/dLNear Optimal/Above Optimal LDL: 110- 129 mg/dLBorderline High LDL: 130-159 mg/dLHigh LDL: 160-189 mg/dLVery High LDL: greater than or equal to 190 mg/dL HDL Cholesterol 48 >40 mg/dL [facility] Comment:Desirable HDL: great er than 40 mg/dL Note: This HDL assay may give artificially low results in patients with liver disease. Blood Venous blood specimen / Unknown 01/03/2024 10:31 AM EDT 01/03/2024 2:08 PM EDT No Fay MD LAB BLOOD ORDERABLES Final Re sult Performing Organization Address [facility] Co de Phone Number [facility] [address] [place] [address] [phone] * Hepatitis C Antibody Reflex (10/12/2022 10:23 AM EDT) Hepatitis C Antibody Nonreactive Nonreactive [facility] Comment:Antibodies to HCV no t detected; does not exclude early acuteHCV infection. 10/12/2022 10:2 3 AM EDT 10/12/2022 2:45 PM EDT [facility] External Provider LAB BLO OD ORDERABLES Final Result Performing Organization Address [facility] de Phone Number [facility] [address] [place] [address] [phone] * HIV Ab/Ag (ISMAEL BLAND) (10/12/2022 10:23 AM EDT) HIV AB/AG Nonreactive Nonreactive [facility] Comment:HIV-1 p24 Ag and/or HIV-1/HIV-2 Ab not detected.A test result that is nonreactive does not exclude thepossibility of exposure to or infection with HIV-1 and/orHIV-2. Nonreactive results in this assay for individualswith prior exposure to HIV-1 and/or HIV-2 may be due toantigen and antibody levels that are below the limit ofdetection of this assay.The [employer] HIV Ag/Ab Combo assay result andsupplemental assay results should be interpreted inconjunction with the patient's clinical presentation,history and other laboratory results. If the results areinconsistent with clinical evidence, additional testing issuggested to confirm the result. 10/12/2022 10:2 3 AM EDT 10/12/2022 2:45 PM EDT [facility] External Provider LAB BLO OD ORDERABLES Final Result [facility] [address] [place] [phone] * Colonoscopy (01/25/2018) Pathologist [facility] Colonoscopy Normal Normal Narrative Lulú Garcia - 01/25/2018 Recommended 5 year follow up Historical Provider MD HEALTH MAINTENANCE Final Result from Last 3 Months or Most Recently Relevant to Health Maintenance Insurance [facility] C3 Care Teams Pattern Grader Cutter Relationship Specialty Start Date End Date oN Fay MD [address] [place] [phone] PCP - General Family Medicine 12/15/17
--- OUTSIDE RECORDS SUMMARY | 2024-05-12 12:02 | XMS_ITS ---
Author Organization [facility] Address [address] [place] [phone] Care Team Providers Care Clinical Data Management Director Name Role Phone No Fay MD Primary Care Provider Sly Darnell Jr, Hoang Montejo [phone] REASON FOR VISIT Pt no show Encounters Encounter Location Date Provider Diagnosis [facility] [address] [place] [phone] 05/06/2023 Hoang Darnell Jr PLAN OF TREATMENT Next Appt Details Provider Name:Hoang valdez Jr, 05/19/2024 12:30:00 PM, [address] [place] [address] , [place], [place], [phone],
--- OUTSIDE RECORDS SUMMARY | 2024-05-12 12:02 | XMS_ITS ---
Author Organization [facility] Address [address] [facility] [address] [place] [phone] Care Team Providers Care Rn Admit Name Role Phone Sumeet JOSHI, No Primary Care Provider Sly Darnell Jr, Hoang Montejo REASON FOR VISIT bowel prep MEDICATIONS Medication SIG (Take, Route, Frequency, Duration) Notes Start Date End Date Status MiraLax (colon prep) 8.3 ounce ((238) grams mixed with Gatorade or Crystal Light orally begin at 5:00 p.m. the day before the procedure for 1 day 04/26/2024 Active Dulcolax 5 MG 1 Orally as directed for bowel prep 04/26/2024 Active Encounters Encounter Location Date Provider Diagnosis [facility] [address] [phone] 04/26/2024 Hoang Darnell Jr PLAN OF TREATMENT Medication Medication Name Sig Start Date Stop Date Notes MiraLax (colon prep) 8.3 oun ce ((238) grams mixed with Gatorade or Crystal Light orally begin at 5:00 p.m. the day before the procedure for 1 day 04/26/2024 Dulcolax 5 MG 1 Orally as directed for bowel prep 04/26/2024 Next Appt Details Provider Name:Hoang valdez Jr, 05/19/2024 12:30:00 PM, [address] [place] [address] , [place], [place], [phone],
--- OUTSIDE RECORDS SUMMARY | 2024-05-12 12:02 | XMS_ITS | Patient Health Record ---
Author Organization [facility] Address [address] [facility] [address] [place] [address] Care Team Providers Care Shafting Worker Name Role Phone No Fay MD Primary Care Provider Hoang Trevino Jr Unavailable ALLERGIES No Known Allergies REASON FOR REFERRAL Referring Provider First Name No Referring Provider Last Name Sumeet Referring Provider Speciality Internal M edicine Referred Organization [facility] Referred Provider Hoang Darnell Jr Referred Address [address] [place] [address], [address],[place], [place],[phone], Referred Provider Specialty Gastroentero logy Referral Priority Routine MEDICATIONS Medication SIG (Take, Route, Frequency, Duration) Notes Start Date End Date Status Sertraline HCl 50 MG TAKE ONE TABLET [...] EVER Y NIGHT Oral for 30 Active Prazosin HCl 2 MG TAKE ONE CAPSULE [...] a day for 30 days 05/04/2022 Active MiraLax (colon prep) 8.3 ounce ((238) grams mixed with Gatorade or Crystal Light orally begin at 5:00 p.m. the day before the procedure for 1 day 04/26/2024 Active Dulcolax 5 MG 1 Orally as directed for bowel prep 04/26/2024 Active IMMUNIZATIONS Vaccine Route Administration Date Status Comme nts Influenza Unknown 05/04/2022 Refused Influenza Unknown 04/26/2024 Refused SOCIAL HISTORY Tobacco [...] W/U Status Risk SNOMED Code Notes Problem Epigastric pain (R10.13) Active confirmed 64523546 Problem Uncomplicated opioid dependence (F11.20) Active confirmed 67812678 Problem Acute gastric ulcer without hemorrhage or perforation (K25.3) Active confirmed 62549812 Problem Gastric ulcer (K25.9) Active confirmed Gastric ulcer (427153758) Problem Colon cancer screening (Z12.11) Active confirmed 291718613 VITAL SIGNS Temperature 98.6 degrees Fahrenheit 04/26/2024 Blood pressure diastolic 01 mm Hg 04/26/2024 Height 67 in 04/26/2024 Blood pressure systolic 001 mm Hg 04/26/2024 Weight 131 lbs 04/26/2024 BMI 20.52 kg/m2 04/26/2024 Encounters Encounter Location Date Provider Diagnosis [facility] [address] [place] [phone] 04/26/2024 Hoang Darnell Jr Colon cancer screening Z12.11 and Acute gastric ulcer without hemorrhage or perforation K25.3 [facility] [address] [place] [phone] 04/26/2024 Hoang Darnell Jr ASSESSMENTS Encounter Date Diagnosis Assessment Notes Treatment Notes Treatment Clinical Notes 04/26/2024 Colon cancer screening (ICD-10 - Z12.11) Colonoscopy material was printed 04/26/2024 Acute gastric ulcer without hemorrhage or perforation (ICD-10 - K25.3) PLAN OF TREATMENT Pending Test Test Name Order Date LIVER PROFILE 05/04/2022 LIPASE 05/04/2022 CBC w/o DIFF 05/04/2022 US ABD 05/04/2022 Drug Screen Urine 06/10/2022 Drug Screen Urine 07/23/2022 Future Test Test Name Order Date UPPER GI ENDOSCOPY 05/04/2022 UPPER GI ENDOSCOPY 07/23/2022 COLONOSCOPY 04/26/2024 Next Appt Details Provider Name:Hoang Leyva Jose valdez Jr, 05/19/2024 12:30:00 PM, [address] [place] [address] , [place], [place], [phone], Insurance Providers Payer Name Payer Address Payer Phone Subscriber Number Group Number Insured Name Patient Relationship to Insured Coverage Start Date Coverage End Date MEDICA[employer] OF [employer] [address] [place] [phone] [id number] HAILEY AVENDANO Self - patient is the insured MEDICAL (GENERAL) HISTORY Medical History History ICD Code Opiate dependence Asthma Iron deficiency anemia Upper endoscopy 01/25/18 hiatal hernia Colonoscopy 01/25/18 inflamm atory polyp, 5-year followup due to prep limitations Low vitamin D Depression Surgical History Surgery Date(Month/Year)
[2024-05-17 12:35] VITALS: BMI 20.5
[2024-05-19 09:03] VITALS: BP 127/65; PULSE 82; RESP 18; TEMP 36.4; O2SAT 97; BMI 19.8
[2024-05-19] MEDS: Lactated Ringers 1,000 ML 50 ML IVCONT (09:23)
--- NOTE | 2024-05-19 10:04 | MHC.SHP ---
Pre-Procedural Eval Section A - 24 Hr Update-Section A only Date of Service: 05/19/24 The patient is an INPATIENT: No Changes since office visit: No Cold of Flu in the past 2 weeks, No New Medical Problems, No Changes in Medication and No Patient answered all questions The patient has been examined within 24 hours of the surgical procedure. The History & Physical has been completed within 30 days and I have reviewed it.: Yes Section B - Complete if H&P > 30 days Chief Complaint: Encounter for screening for malignant neoplasm of Allergies: Allergies Allergy/AdvReac Type Severity Reaction Status Date / Time No Known Allergies Allergy Verified 10/23/22 10:54 Plan I have reviewed the history and physical and performed a pertinent physical examination on my patient. No changes have occurred unless specified. Time Spent With Patient Time: Total time managing care of this patient today ____ minutes.
--- NOTE | 2024-05-19 10:26 | HO.ANESPROP2 ---
[facility] Past Medical History Medical History Peptic ulcer disease Low vitamin D level Depression Hiatal hernia Iron deficiency anemia Asthma Opiate dependence Family History Family history of problems with anesthesia: No Surgical History Surgical History History of colonoscopy History of endoscopy History of Problems with Anesthesia: No Social History Social History Patient Tobacco Use Status: Current everyday Tobacco user Tobacco use type: Cigarette Cigarettes Per Day: 5 Years Smoked: 6 Have you been hit, kicked, punched, or otherwise hurt by someone within the past year? If so, by whom?: No Are you DNR?: No Advance Directives: No Advance Directives Information Provided: Yes Nutrition Risks: No Nutritional Risk Meds Allergies Allergy/AdvReac Type Severity Reaction Status Date / Time No Known Allergies Allergy Verified 10/23/22 10:54 Active Medications: Current Medications Lactated Ringer's (Lr) 1,000 mls @ 50 mls/hr IVCONT .Q20H LUIS FERNANDO Last Admin: 05/19/24 09:23 Dose: 50 mls/hr Home Medications ?Medication ?Instructions ?Recorded ?Confirmed ?Last Taken ?Type albuterol sulfate 90 mcg/actuation 2 puff inhalation Q4H PRN 06/09/22 05/17/24 05/19/24 History aerosol inhaler (ProAir HFA) Shortness Of Breath buprenorphine 8 mg-naloxone 2 mg 2 strip sublingual DAILY 06/09/22 05/17/24 05/19/24 History sublingual film (Suboxone) hydroxyzine HCl 10 mg tablet 1 tab PO BID PRN ANXIETY 06/09/22 05/17/24 05/19/24 History melatonin 5 mg tablet 2 tab PO BEDTIME PRN Sleep 06/09/22 05/17/24 Unknown History olanzapine 7.5 mg tablet 1 tab PO BEDTIME 06/09/22 05/17/24 05/18/24 History ondansetron HCl 4 mg tablet 1 tab PO Q8H 06/09/22 05/17/24 Unknown History prazosin 2 mg capsule 1 cap BEDTIME 06/09/22 05/17/24 Unknown History sertraline 100 mg tablet 1 tab DAILY 0305/17/24 05/19/24 History sertraline 50 mg tablet 1 tab PO DAILY 06/09/22 05/17/24 05/19/24 History pantoprazole 40 mg tablet,delayed 40 mg PO BID 05/17/24 05/17/24 05/19/24 History release Exam Height,Weight and Vital Signs: Height 5 ft 7 in Weight 57.23 kg Last Vital Signs Temp 97.6 F 05/19/24 09:03 Pulse 82 05/19/24 09:03 Resp 18 05/19/24 09:03 BP 127/65 05/19/24 09:03 Pulse Ox 97 05/19/24 09:03 O2 Del Method Room Air 05/19/24 09:03 Airway Mallampati Class: III TM Dist: >3cm Neck ROM: Full Loose/Missing/Broken Teeth: No Heart: RRR Lungs: CTA Assessment and Plan Assessment Anesthesia Assessment: Anesthesia Plan Discussed and Chart Reviewed Final Anesthetic Review Family History of Problems with Anesthesia: No History of Problems with Anesthesia: No NPO: Yes ASA Class: II Final Preanesthetic Review: Meds/Allgs Chart Reviewed, Consent Obtained/Reviewed and Anes Risks/Benef Reviewed Patient Risk: Low Procedure Risk: Low Anesthetic Plan Anesthetic Plan: MAC: Disposition: Standard PACU
[2024-05-19 11:17] VITALS: BP 96/55; PULSE 61; RESP 12; TEMP 36.6; O2SAT 100
[2024-05-19 11:32] VITALS: BP 103/66; PULSE 65; RESP 16; O2SAT 100
--- NOTE | 2024-05-19 12:03 | OP_ITS ---
DATE OF SERVICE: 05/19/2024 SURGEON: Hoang Darnell MD INDICATIONS: Colon cancer screening. PREOPERATIVE DIAGNOSIS: POSTOPERATIVE DIAGNOSIS: PROCEDURE PERFORMED: Colonoscopy to the terminal ileum with biopsy. ESTIMATED BLOOD LOSS: COMPLICATIONS: ANESTHESIA: Medications: Monitored anesthesia care. ASSISTANTS: SPECIMENS: PROCEDURE DESCRIPTION: History and physical performed. The risks and benefits of the procedure were explained to the patient. Informed consent was obtained. The patient was placed in the left lateral decubitus position. A digital rectal exam was performed and was found to be normal. The Olympus pediatric video colonoscope was introduced into the rectum and advanced to the cecum. The cecum was identified by transillumination, palpation, and identification of ileocecal valve. Examination was performed. The scope was removed. He tolerated the procedure well and was returned to recovery area in stable condition. FINDINGS: The terminal ileum was examined and appeared normal. The visualized colonic mucosa was normal. The quality of the prep was good. A single polyp measuring less than 5 mm was identified in the right colon at 65 cm. This was removed using a biopsy forceps. No other polyps were identified. Retroflexed examination showed moderate-sized internal hemorrhoids. IMPRESSION: Colon polyp. RECOMMENDATION: Follow up the biopsy results. MD RENETTA Pierson/LINNL / [id number]
== END 2024-05-19 11:57 | disposition home or self-care (01) ==
PROVIDERS: PCP Pediatrics; Visit Provider Internal Medicine Gastroenterology
PROC: 0DJD8ZZ Inspection of Lower Intestinal Tract, Via Natural or Artificial Opening Endoscopic (ICD-10-PCS; CPT 45378; principal; 2024-05-19 11:30)
DX: Z12.11 Encounter for screening for malignant neoplasm of colon (principal); K63.5 Polyp of colon; K64.8 Other hemorrhoids; K25.3 Acute gastric ulcer without hemorrhage or perforation; J45.909 Unspecified asthma, uncomplicated; D50.9 Iron deficiency anemia, unspecified; E55.9 Vitamin D deficiency, unspecified; F32.A Depression, unspecified; Z79.899 Other long term (current) drug therapy; F11.20 Opioid dependence, uncomplicated; F17.210 Nicotine dependence, cigarettes, uncomplicated
CPT/HCPCS: 45380; 88305; J2003; J2371; J2704